=== PATIENT | male | born 1995 | race Caucasian/White ===

== ENCOUNTER 2020-08-25 08:15 | Day surgery (SDC) | payer BC ==
[~2020-08-25] VITALS: Ht 185.4 cm; Wt 86.4 kg
--- NOTE | ~2020-08-25 | OR ---
[facility] [address] [place], [place] [address] Draft DATE OF OPERATION: 08/25/2020 SURGEON: Liang Baron MD PREOPERATIVE DIAGNOSIS: Chronic allergic fungal pansinusitis, deviated nasal septum. POSTOPERATIVE DIAGNOSES: 1. Chronic allergic fungal pansinusitis, deviated nasal septum. 2. Frontal sinusitis, sphenoiditis, ethmoiditis, and maxillary sinusitis, all chronic. PROCEDURES: 1. Bilateral frontal ethmoidectomy, 06761-26. 2. Left sphenoidotomy with removal of tissue. 3. Nasal septoplasty, 55020. 4. Right sphenoidotomy, 85142. 5. Left maxillary antrostomy with removal of soft tissue, 41466. 6. Right maxillary sinusotomy, 21563. INDICATIONS: This 25-year-old male has had progressive nasal obstruction, congestion, purulent postnasal drainage, and lost his airway over the last couple of years. He also lost sense of smell. No one did evaluate him until he came in my office and physical exam demonstrated significant polyposis on the left side and deviation of the septum to the right side with very narrow airway. CT scan was obtained, which showed severe sinusitis, most likely of the allergic fungal type due to the hetero-opacity of the radiographs, which were serpiginous, most consistent with this. Both frontal sinuses, left sphenoid sinus, and left maxillary sinus were absolutely full of this material with polyps coming out of the left side. Also, chronic sinus disease noted in the ethmoid labyrinth on the right. Because of the severity of the problem and the failure to respond medically, the above surgery was indicated on the road to further therapy to help him recover as it is the most severe category of chronic sinusitis. DESCRIPTION OF PROCEDURE: The patient was placed in the supine position, had an orotracheal intubation, was placed under general anesthesia. Photographs were taken preop, intraop, and postop. Left side was approached first since the airway was more open that side. Polyps were removed beginning right from just inside the nose with microdebrider. This was removed until the middle turbinate was identified. Then, going in between there gradually maxillary sinusotomy was performed. The backbiting forceps used to remove what was left of the PATIENT NAME: JARRED STEPHENS OPERATIVE REPORT DATE OF : [birth year] REPORT #: [id number] PHYSICIAN: LIANG BARON MD PCP: NO PRIMARY CARE PHYSICIAN REPORT IS CONFIDENTIAL AND NOT TO BE RELEASED WITHOUT AUTHORIZATION [facility] [address] [place], [place] [address] Draft uncinate process with a Jamil-Cut, ethmoid punch, and microdebrider were all useful. Time was spent getting out the peanut butter consistency, only much stickier like, semi-dried rubber sealant pulling that out of the maxillary sinus along with polyps. It was throughout the ethmoid labyrinth interspersed between polyps, the trans ostia Sphenoidotomy was performed, almost a half-hour spent just hauling this very thick tenacious stuff out of the sphenoid sinus once it was opened. The rostrum was removed as wide as possible. Then, a 70-degree scope was used to visualize the base of skull, dissecting that out going up in the frontal sinus and the frontal sinus was likewise packed with the allergic mucin. Not all that could be removed since it was up so high, but the central portion of it was removed with suction. The nasal pore was placed on that side with some mupirocin ointment to help prevent lateralization of the remnant of the middle turbinates. The septum was then repaired, injecting a couple of mL of 1% lidocaine with 1:200,000 epinephrine, followed by 2.5 mL of Marcaine 0.5% with 1:200,000 epinephrine. Incision was made at the junction of the floor lifting of the mucoperichondrium. The nuchal periosteum junction was from the cartilage from bone with a Cedrick D knife in the dull side of the caudal dissection tool. Madrid scissors were used to remove the section of the deviated pieces of the bone, basically a perpendicular plate of the ethmoid and bony septum. This was removed with Renee forceps. A significant spur sticking into the left airway wedged against the inferior turbinate was removed with the mallet and chisel. The flaps were then base together with four oh gut. The anterior incisions closed with four chromic. Injecting another cc and half on the right side. The dissection then proceeded same on the right and left except a good deal of the anterior-inferior portion of middle turbinate was trimmed away as was polypoid and lateralized. The uncinate process was removed just like was on the left side. No polyps were found in the maxillary sinus, just a lot of old mucus which was cleaned out and the polypoid mucosa also resected. Complete ethmoidectomy done, opening up the sphenoid sinus on the right with a trans-ostial approach. Removing the rostrum with the Kerrison forceps, and then the dissection proceeded anteriorly with a 70-degree scope. The frontal sinus was found to be packed with allergic mucin. This peanut butter like brown and black looking stuff. That was suctioned out as well as possible both with the microdebrider pulling it out with forceps for further specialized frontal sinus as well as the microdebrider with a curved blade. At length, the procedure was finished. More nasal pore on the right side. The patient was awakened, extubated, and sent to the recovery room in good condition. Estimated blood loss was between 350 and 400 mL. Liang Baron MD PATIENT NAME: JARRED STEPHENS OPERATIVE REPORT DATE OF : [birth year] REPORT #: [id number] PHYSICIAN: LIANG BARON MD PCP: NO PRIMARY CARE PHYSICIAN REPORT IS CONFIDENTIAL AND NOT TO BE RELEASED WITHOUT AUTHORIZATION [facility] [address] [place] [address] [place] [address] Draft [facility] /[id number] Copies: ~ PATIENT NAME: JARRED STEPHENS OPERATIVE REPORT DATE OF : [birth year] REPORT #: [id number] PHYSICIAN: LIANG BARON MD PCP: NO PRIMARY CARE PHYSICIAN REPORT IS CONFIDENTIAL AND NOT TO BE RELEASED WITHOUT AUTHORIZATION
[~2020-08-25 08:15] MED LIST: ALLEGRA ALLERGY60 MG PO
--- NOTE | 2020-08-25 14:43 | NUR ---
08/25/20 1443 Madelaine Barroso 1435- PT ARRIVES TO PACU NONAROUSABLE TO NOXIOUS STIMULI WITH AN OPA IN PLACE. RESP EVEN AND UNLABORED. OXYGEN SAT HIGH 90'S TO 100% ON 10L VIA MASK. 1443- OXYGEN TITRATED DOWN TO 6L VIA MASK.
--- NOTE | 2020-08-25 16:04 | NUR ---
1520: PATIENT BACK IN DAY SURGERY ROOM FROM PACU. DENIES PAIN. DENIES NAUSEA. MOUSTACHE DRESSING CDI. IV SITE WNL. SCDs ON. VS CHECKED. PATIENT TOLERATING WATER. GIVEN PUDDING TO EAT. CALL LIGHT WITHIN REACH. 1525: PATIENT TOLERATED PUDDING. PATIENT ASSISTED OOB AND TO WALK AROUND ROOM. GAIT STEADY. PATIENT GETTING DRESSED. 1535: PATIENT WALKED INDEPENDENTLY TO BATHROOM. GAIT STEADY TO AND FROM BATHROOM. MOUSTACHE DRESSING CHANGED DUE TO SATURATION. 1604: DISCHARGE INSTRUCTIONS GIVEN TO PATIENT. IV DC'D WNL. TIP INTACT. DRESSING APPLIED. PATIENT SITTING ON SIDE OF BED WAITING UNTIL 1615 WHEN HE CAN DISCHARGE.
--- NOTE | 2020-08-25 16:17 | NUR ---
MOUSTACHE DRESSING CHANGED. AWAITING ARRIVAL OF RIDE HOME.
--- NOTE | 2020-08-25 16:36 | NUR ---
1627: PATIENT'S RIDE HERE. PATIENT DISCHARGED TO HOME VIA WHEELCHAIR.
--- NOTE | 2020-08-29 11:38 | PATH ---
[facility] [address] [place], [place] [address] Signed SPECIMEN(S): A LEFT SINUS CONTENTS AND SEPTUM SPECIMEN(S): B RIGHT SINUS CONTENTS SPECIMEN SOURCE: A. LEFT SINUS CONTENTS AND SEPTUM B. RIGHT SINUS CONTENTS CLINICAL HISTORY: Endoscopic sinus surgery. Pre: Fungal sinusitis. Post: ESS, septoplasty. FINAL PATHOLOGIC DIAGNOSIS: A. Left sinus contents and septum, sinusectomy: - Allergic fungal sinusitis. - Fragments of sinonasal inflammatory polyp(s). B. Sinus contents, right, sinusectomy: - Allergic fungal sinusitis. - Fragments of sinonasal inflammatory polyp(s). - Fragment of viable bone with no histopathologic abnormality. NAL:cml:C2NR MICROSCOPIC EXAMINATION: Histologic sections of all submitted blocks are examined by light microscopy. These findings, together with the gross examination, support the pathologic diagnosis. GROSS DESCRIPTION: Two specimens are received in two containers, labeled "AM." A. The specimen, labeled "AM, left sinus contents and portion of septum," is received in formalin and consists of irregular shaped, membranous, soft and hemorrhagic tissue fragments that aggregate measure 11.5 x 7.5 x 1.7 cm. Curtain Hemmer Automatic sections are submitted in cassette (A1). B. The specimen, labeled "AM, right sinus content," is received in formalin and consists of irregular shaped, membranous, mucinous and hemorrhagic tissue fragments that aggregate measure 6.5 x 5.2 x 1.2 cm. Curtain [employer] Automatic sections are submitted in cassette (B1). JS (under the direct supervision of a pathologist) The Gross Description was prepared using a voice recognition system. The report was reviewed for accuracy; however, sound-alike word errors, addition and/or deletions may occur. If there is any question about this report, please contact Client Services. PATIENT NAME: JARRED STEPHENS PATHOLOGY DATE OF : [birth year] REPORT #: [id number] PHYSICIAN: SCHUYLER ANG PCP: NO PRIMARY CARE PHYSICIAN REPORT IS CONFIDENTIAL AND NOT TO BE RELEASED WITHOUT AUTHORIZATION [facility] [address] [place] [address] Signed PERFORMING LABORATORY: The technical component was performed [place] [address] (Printing Press Operator: Chayo Henning MD; CLIA# [id number]). Professional interpretation was performed by [facility], [address] [place] [id number] (CLIA# [id number]). Diagnostician: Shey Hare MD Pathologist Electronically Signed 08/29/2020 Copies: ~ PATIENT NAME: JARRED STEPHENS PATHOLOGY DATE OF : [birth year] REPORT #: [id number] PHYSICIAN: SCHUYLER ANG PCP: NO PRIMARY CARE PHYSICIAN REPORT IS CONFIDENTIAL AND NOT TO BE RELEASED WITHOUT AUTHORIZATION
== END 2020-08-25 16:27 | disposition home or self-care (01) ==
LOC: OPS 08:15 → DS 08:15 → OPS 16:27
PROVIDERS: ATTEND Otolaryngology
PROC: 09BX8ZZ Excision of Left Sphenoid Sinus, Via Natural or Artificial Opening Endoscopic (ICD-10-PCS; 2020-08-25)
PROC: 09BR8ZZ Excision of Left Maxillary Sinus, Via Natural or Artificial Opening Endoscopic (ICD-10-PCS; 2020-08-25)
PROC: 09BU8ZZ Excision of Right Ethmoid Sinus, Via Natural or Artificial Opening Endoscopic (ICD-10-PCS; 2020-08-25)
PROC: 09BM8ZZ Excision of Nasal Septum, Via Natural or Artificial Opening Endoscopic (ICD-10-PCS; principal; 2020-08-25 08:15)
PROC: 09BV8ZZ Excision of Left Ethmoid Sinus, Via Natural or Artificial Opening Endoscopic (ICD-10-PCS; 2020-08-25 08:15)
DX: J32.4 Chronic pansinusitis (principal); J33.8 Other polyp of sinus; J32.8 Other chronic sinusitis; B48.8 Other specified mycoses; J34.2 Deviated nasal septum; K21.9 Gastro-esophageal reflux disease without esophagitis; F17.220 Nicotine dependence, chewing tobacco, uncomplicated; Z79.899 Other long term (current) drug therapy; Z20.828 Contact with and (suspected) exposure to other viral communicable diseases
CPT/HCPCS: 00160; 36415; 80048; 85025; J0330; J1100; J2001; J2250; J2405; J2704; J2930; J3010; J3490; J7121

== ENCOUNTER 2022-08-31 06:05 | Day surgery (SDC) | payer BC ==
[~2022-08-31] VITALS: Ht 185.4 cm; Wt 86.4 kg
--- NOTE | ~2022-08-31 | OR ---
[facility] [address] [place], [place] [address] Draft DATE OF OPERATION: 08/31/2022 SURGEON: Liang Baron MD PREOPERATIVE DIAGNOSES: Chronic frontal sinusitis, chronic ethmoiditis, chronic maxillary sinusitis, chronic sphenoid sinusitis, allergic fungal sinusitis with polyps. POSTOPERATIVE DIAGNOSES: Chronic frontal sinusitis, chronic ethmoiditis, chronic maxillary sinusitis, chronic sphenoid sinusitis, allergic fungal sinusitis with polyps. PROCEDURES: 1. Bilateral frontal ethmoidectomy, 83597-18. 2. Bilateral endoscopic sphenoidotomies, 77075-49. 3. Bilateral maxillary antrostomies with removal of tissue, 78446-45. INDICATIONS: This 27-year-old male suffers from diagnosis confirmed allergic fungal sinusitis. He had his original surgery over two years ago with removal of polyps and pansinusitis and evacuation of allergic fungal mucin. The patient then has been on allergy shots to include molds as well as budesonide rinses, his polyposis especially right side over the left has closed off again most of his sinuses especially on the right and the disease, which is notorious for its recurrence will be helped by evacuating the allergic mucin, removing the polyps again and also possible further opening up the bony apertures. Removal of ethmoid septations, more sphenoid ostial bone and so forth. Medical treatment has failed, even though it is as maximal as we know how in this year of 2021. PROCEDURE IN DETAIL: The patient was placed in a supine position, had an orotracheal intubation, was placed under general anesthesia. Preop photographs were obtained endoscopically also during surgery and postoperatively. The left side was approached first. 1% lidocaine with 1:100,000 epinephrine was injected in the lateral wall in the anterior edge of the middle turbinates. More middle turbinate bone anteriorly was away to get that concavity from the lateral surface of the turbinates to be more open and flat. Polypoid surface was removed with the microdebrider. The microdebrider was of great use in removing tissue and soft tissue, was used throughout the sinus labyrinth on both sides. The 60 degree blade was used in removing polyps out of the maxillary sinus as well as instrumentation. Backbiter bone was used to remove more bone and PATIENT NAME: JARRED STEPHENS OPERATIVE REPORT DATE OF : [birth year] REPORT #: [id number] PHYSICIAN: LIANG BARON MD PCP: GUSTAVO HAILE PA-C REPORT IS CONFIDENTIAL AND NOT TO BE RELEASED WITHOUT AUTHORIZATION [facility] [address] [place], [place] [address] Draft taking it down inferiorly and anteriorly and then a Thru-Cut ethmoid punch posteriorly to maximally open up the maxillary sinus. All the polyps removed in out of the ethmoid labyrinth, more posteriorly, there were a number of septations remnants which remained. These were very carefully removed with pediatric up-biting forceps being very careful right along at the border basically of the endocranium. The sphenoid sinus ostium was found, lots of polyps in it and on the floor and blocking it. These were all removed. More bone removed from the inferior, medial, lateral and superior portions to open up the sphenoid sinus wider. The microdebrider was used to remove polyps in that sphenoid sinus. Then switching to a 70 degree scope, the base of skull was further dissected out and the frontal sinus opened. The Kerrison frontal sinus punch was used to remove more of the RAYMON of the frontal sinus. This 60 degree oscillating blade was placed up in there, removing polyps from the anterior and lateral and medial hare. The posterior wall that was removed through the polyps were removed with frontal sinus instruments. No packing required. The right side was injected with another . Lots of polyps on the right side, these were all removed with microdebrider and the previous ethmoid labyrinth identified again, re-worked. More of the intersinus septations which were present were carefully removed specially on that posterior superior wall in the posterior ethmoids. The transethmoid sphenoidotomy was re-opened, more bone removed. The polyps right in the anterior portion were removed with the microdebrider. Switching to a 70 degree scope then. The base of skull was worked very carefully with the most delicate of instrumentation to remove the sinus septations with pediatric instruments. The frontal sinus Kerrison punch was placed up into the frontal sinus on the right side removing polyps and a little more bone, but the 60 degree oscillating blade was of great used to put it up in the frontal sinus and remove polyps. Allergic mucin quite a focus of it was found in the posterior and anterior ethmoid junction where there were polyps, removing the polyps and then all of the allergic mucin and finally after opening up the frontal sinus time was spent in the maxillary sinus removing polyps. No allergic mucin was found there, but lots of polyps and disease mucosa was stripped out. At the conclusion the procedure, all of the sinuses were wide open. No packing required. The patient clotted well. Estimated blood loss around 100 mL. There were no complications. The patient went to recovery room in good condition. He will be maintained on budesonide rinses after this and continue his immunotherapy against mold. MD NATAN Edwards/NIGEL /[id number] PATIENT NAME: JARRED STEPHENS OPERATIVE REPORT DATE OF : [birth year] REPORT #: [id number] PHYSICIAN: LIANG BARON MD PCP: GUSTAVO HAILE PA-C REPORT IS CONFIDENTIAL AND NOT TO BE RELEASED WITHOUT AUTHORIZATION [address] [facility] [place] [place] [address] Draft Copies: ~ PATIENT NAME: JARRED STEPHENS OPERATIVE REPORT DATE OF : [birth year] REPORT #: [id number] PHYSICIAN: LIANG BARON MD PCP: GUSTAVO HAILE PA-C REPORT IS CONFIDENTIAL AND NOT TO BE RELEASED WITHOUT AUTHORIZATION
[~2022-08-31 06:05] MED LIST changes: +ZYRTEC10 MG PO
--- NOTE | 2022-08-31 11:09 | NUR ---
08/31/22 1109 Madelaine Barroso 1056- PT ARRIVES TO PACU REACTIVE TO VOICE. PT REACHING UP TOWARDS HIS FACE. REORIENTING PT TO WHERE HE IS AND TO NOT TOUCH HIS FACE. PT IS ABLE TO BE REDIRECTED AND PUTS HIS ARMS DOWN. 1058- PT HAVING FREQUENT PVC'S AND GOES INTO BIGEMINY. SAT ACT INSTRUCTOR AWARE. ORDERS TO PLACE OXYGEN ON PT. 6L OF OXYGEN VIA MASK PLACED. 1101- PT SAT UP IN BED SLIGHTLY HE IS COUGHING. PT ABLE TO CLEAR SECRETIONS. PT IS BACK IN A SINUS RHYTHM. 1103- OXYGEN TITRATED OFF. PT IS MORE AWAKE AND ABLE TO FOLLOW COMMANDS. PT REPORTS NO PAIN OR NAUSEA.
--- NOTE | 2022-08-31 11:30 | NUR ---
PT TRANSPORTED TO DAY SURGERY VIA STRETCHER. PT RESTING IN BED. COMPLAINS OF NO PAIN OR NAUSEA. PT HAS GAUZE 4X4 FOLDED UNDER NOSE, SECURED WITH TAPE, WITH A SMALL AMOUNT OF RED DRAINAGE. INFORMED PT THIS WOULD BE CHANGED BEFORE DISCHARGE. PT HAS CHOCOLATE PUDDING AND WATER AT BEDSIDE. CALL LIGHT WITHIN REACH.
--- NOTE | 2022-08-31 11:44 | NUR ---
PT ALERT, ORIENTED AND SUPPORTED BY HIS JALIL. SHE WILL RETURN AT [place]. PT HAS HAD THIS SURGERY PREVIOUS, FEELS INFORMED, REQUESTED PRAYER. WILL FOLLOW NEEDED
--- NOTE | 2022-08-31 12:30 | NUR ---
LE 1200: DISCHARGE INSTRUCTIONS REVIEWED WITH PT AND AT BEDSIDE. QUESTIONS AND CONCERNS ADDRESSED. 2X2 PADDING AND TAPE REAPPLIED UNDER NOSTRILS. IV D/C. LE 1210: PT AMBULATED TO RESTROOM WITH MINIMAL ASSISTANCE. LE 1220: PT DISCHARGED FROM DAY SURGERY VIA WHEELCHAIR TO PERSONAL AUTOMOBILE WITH . PRESCRIPTION FOR TYLENOL 3 CALLED IN TO [facility] PER DOCTOR'S WRITTEN ORDERS.
== END 2022-08-31 12:20 | disposition home or self-care (01) ==
LOC: DS 06:05
PROVIDERS: ATTEND Otolaryngology
PROC: 09TU8ZZ Resection of Right Ethmoid Sinus, Via Natural or Artificial Opening Endoscopic (ICD-10-PCS; 2022-08-31)
PROC: 099X8ZZ Drainage of Left Sphenoid Sinus, Via Natural or Artificial Opening Endoscopic (ICD-10-PCS; 2022-08-31)
PROC: 099W8ZZ Drainage of Right Sphenoid Sinus, Via Natural or Artificial Opening Endoscopic (ICD-10-PCS; 2022-08-31)
PROC: 099R8ZZ Drainage of Left Maxillary Sinus, Via Natural or Artificial Opening Endoscopic (ICD-10-PCS; 2022-08-31)
PROC: 099Q8ZZ Drainage of Right Maxillary Sinus, Via Natural or Artificial Opening Endoscopic (ICD-10-PCS; 2022-08-31)
PROC: 09TV8ZZ Resection of Left Ethmoid Sinus, Via Natural or Artificial Opening Endoscopic (ICD-10-PCS; principal; 2022-08-31 08:15)
DX: J32.2 Chronic ethmoidal sinusitis (principal); J32.1 Chronic frontal sinusitis; J32.0 Chronic maxillary sinusitis; J32.3 Chronic sphenoidal sinusitis; J33.8 Other polyp of sinus
CPT/HCPCS: 00160; J0131; J1100; J2001; J2405; J2704; J3010; J7121